=== PATIENT | female | born 1940 | race Caucasian/White ===

== ENCOUNTER 2020-11-13 21:27 | Emergency (ER) | payer MEDICARE, OTHER, SELFPAY ==
[2020-11-13] VITALS (7 sets, daily range): BP systolic 114–124; BP diastolic 56–74; PULSE 66–83; RESP 18–20; TEMP 36.4; O2SAT 96–98
--- NOTE | 2020-11-13 21:30 | RT.EKG_ITS ---
APPROVED REPORT Exam: Resting ECG Patient Location: E HR:67 bpm ECG Measurements Heart Rate 67 AXIS W[place] 147 P 49 QRSd 76 QRS -10 QT 409 T 69 QTc 432 Conclusion Sinus rhythm...normal P axis, V-rate 60- 99 Low voltage, precordial leads...precordial leads <1.0mV
--- NOTE | 2020-11-13 21:45 | DI.RAD_ITS ---
EXAM: XR CHEST 2V PA LATERAL CLINICAL HISTORY: chest pain TECHNIQUE: 2D digital imaging was performed. COMPARISON: No exams were available for comparison FINDINGS: The heart is not enlarged. Coronary artery stents are noted. The lungs are clear and well expanded. No pleural effusion seen. Mediastinal contours appear intact. IMPRESSION: Normal chest. RADIATION DOSE DELIVERED: Total DLP
[2020-11-13 22:10] LABS: Abs Immature Grans 0.03 10^3/uL (0.0-0.06); Absolute Basophil Count 0.05 10^3/uL (0.0-0.2); Absolute Eosinophil Count 0.23 10^3/uL (0.0-0.7); Absolute Lymphocyte Count 2.71 10^3/uL (1.2-3.4); Absolute Monocyte Count 0.66 10^3/uL (0.1-0.8); Absolute Neutrophil Count 5.06 10^3/uL (1.2-6.7); Basophils % 0.6; Eosinophils % 2.6; HCT 38.8 % (36.0-46.0); HGB 12.4 g/dL (11.2-15.7); Immature Grans % 0.3; MCV 87.6 fL (80-95); MPV 8.9 fL (8.0-11.0); Monocytes % 7.6; Neutrophils % 57.9; Nucleated RBC 0 %; Platelet Count 318 10^3/uL (130-400); RBC 4.43 10^6/uL (3.93-5.22); RDW 14.4 % (11.7-14.6); RDW-SD 46.4 fL; WBC 8.74 10^3/uL (4.4-10.8)
[2020-11-13 22:27] LABS: PTT Activated 22.4 sec (21.0-27.5); Prothrombin Time 9.9 sec (9.3-11.0)
[2020-11-13] MEDS: Aspirin 81 MG CHEW 243 MG CH (22:30)
[2020-11-13 22:33] LABS: ALT 20 U/L (14-59); AST 16 U/L (15-37); Albumin 3.7 g/dL (3.4-5.0); Alkaline Phosphatase 112 U/L (46-116); Anion Gap 15.4 mmol/L (3-11); BUN 19 mg/dL (7-18); CO2 22.6 mmol/L (21.0-32.0); CREATININE 1.1 mg/dL (0.55-1.02); Calcium 9.5 mg/dL (8.5-10.1); Chloride 104 mmol/L (98-107); Estimated GFR 48.04 (mL/min/1.73m2); Glucose 171 mg/dL (74-106); Magnesium 1.6 mg/dL (1.8-2.4); NT-proBNP 79 pg/mL (<300); Potassium 3.1 mmol/L (3.5-5.1); Sodium 142 mmol/L (136-145); Total Protein 7.6 g/dL (6.4-8.2)
[2020-11-13 22:36] LABS: Troponin I < 0.05 ng/mL (<0.06)
[2020-11-13 22:46] LABS: D-Dimer 2036 ng/mlFEU (<500)
--- NOTE | 2020-11-13 22:49 | DI.VRAD_ITS ---
PROCEDURE INFORMATION: Exam: XR Chest Exam date and time: 11/13/2020 10:21 PM Age: 80 years old Clinical indication: Chest pain TECHNIQUE: Imaging protocol: XR of the chest Views: 2 views. COMPARISON: No relevant prior studies available. FINDINGS: Lungs: Unremarkable. No consolidation. Pleural spaces: Unremarkable. No pleural effusion. No pneumothorax. Heart/Mediastinum: Coronary artery stents present. Bones/joints: Unremarkable. IMPRESSION: No acute finding. Dictated and Authenticated by: Avani Munoz MD. Ordering:APOLINAR Singh MD
--- NOTE | 2020-11-13 22:49 | DI.CT_ITS ---
EXAM: CT CHEST PE ABD PELVIS W TECHNIQUE: CT angiography of the chest, and abdomen was performed with bolus infusion of 100 cc of O mnipaque 350. Axial CT angiography was performed with multi-slice acquisition and multi-planar and/or 3D reconstruc tions. COMPARISON: No exams were available for comparison FINDINGS: The lungs are predominantly clear with mild changes of scarring and a couple of tiny calcified pulmo nary nodules of the left upper lobe.. No pleural effusion. No evidence of pulmonary embolic disease. No thoracic aortic dissection or aneurysm. Borderline ectasia the ascending aorta at 40 millimeters . Major branches of the thoracic aorta appear normal. No pleural effusion. No mediastinal or hilar adenopathy. Tracheobronchial tree appears intact. No focal hepatic or renal abnormality seen. Gallbladder and bile ducts are CT normal. Pancreas is unr emarkable. Spleen shows unremarkable early arterial phase pattern of enhancement. No abdominal aortic aneurysm or dissection. Major branches of the abdominal aorta show mild calcific atheromatous changes without evidence of a hemodynamically significant stenosis.. No abdominal or pe lvic adenopathy. Normal appendix. No significant abdominal wall hernia. No focal bowel pathology. IMPRESSION: No evidence of acute vascular abnormality of the chest, or abdomen. No other significant acute findi ngs. RADIATION DOSE DELIVERED: 713.32mGy.cm Total DLP 713.32mGy.cm Total DLP DATA REPOSITORY: All CT scans at this facility are submitted to the National Radiology Data Registry (NRDR) Dose Index Registry (DIR) with the [employer] ([employer]). RADIATION OPTIMIZATION: All CT scans at this facility use at least one of these dose optimization te chniques: automated exposure control; mA and/or kV adjustment per patient size (includes targeted exa ms where dose is matched to clinical indication); or iterative reconstruction.
[2020-11-13] MEDS: MAGNESIUM SULFATE 1 GM/100 ML BAG IVPB (22:51)
[2020-11-13] MEDS: Potassium Chloride 20 MEQ TABCR 40 MEQ PO (22:51)
--- NOTE | 2020-11-13 23:14 | ED.GENADUL_ITS ---
Discharge Plan Disposition Patient Disposition: HOME Condition: Stable Discharge Details Clinical Impression: Chest pain Primary Care Provider: Shelton Kim ED Provider: Jose Daniel Plunkett [place] Meds and New Rx's Prescriptions: Continued atorvastatin 80 mg Tablet 80 mg RF: 0 donepezil 10 mg Tablet 10 mg RF: 0 isosorbide mononitrate 30 mg Tablet Extended Release 24 Hr 30 mg PO RF: 0 clopidogrel 75 mg Tablet 75 mg RF: 0 aspirin 81 mg Tablet,Delayed Release (Dr/Ec) 81 mg RF: 0 cyanocobalamin (vitamin B-12) [Vitamin B-12] 500 mcg Tablet 500 mcg RF: 0 nitroglycerin [Nitrostat] 0.4 mg Tablet, Sublingual 0.4 mg sublingual RF: 0 sertraline 25 mg Tablet 25 mg RF: 0 estradiol [Estrace] 0.01 % (0.1 mg/gram) Cream 0.01 VAGINAL RF: 0 memantine 10 mg Tablet 10 mg RF: 0 metoprolol tartrate 25 mg Tablet 12.5 mg RF: 0 cinnamon bark [Cinnamon] 500 mg Capsule 500 mg PO RF: 0 cholecalciferol (vitamin D3) [Vitamin D3] 125 mcg (5,000 unit) Tablet 125 mcg RF: 0 melatonin 5 mg Capsule 5 mg RF: 0 Osteo Bi-Flex Triple Strength 750 mg-644 mg- 30 mg-1 mg Tablet PO RF: 0 Discharge Instructions Instructions: Chest Pain (ED) Additional Instructions: Evaluation tonight shows no evidence of blood clot or dissection on CT scan. EKG and cardiac enzymes x2 were fine. Some electrolyte abnormalities which were addressed. You should follow-up with primary care and cardiology. Return to ED for new or worsening pain, fever, shortness of breath, or other concerns. Referrals: Shelton Kim [Primary Care Provider] - Discharge Data Discharge Date/Time-TO BE ENTERED AT DEPARTURE: 11/14/20 01:36 Medical Decision Making <ADDI Joe - Last Filed: 11/14/20 11:57> 80-year-old female presents to the ER with her daughter, history of dementia, OR with multiple stents, hyperlipidemia, hypertension, CVA-TIA, aortic aneurysm, presents for increasing frequency of chest pain, vague left arm pain, and shortness of breath. Patient is followed by cardiology at [facility]. Most recent symptoms were around 6:30 PM this evening after walking in a store, martha gustafsonomatic now. She took a single aspirin, will provide her additional 3 aspirin. Will initiate cardiac work-up including a D-dimer. Differential is wide and includes not excluded to ACS, unstable angina, PE, aneurysm, chest wall pain, costochondritis, pneumonia, CHF, pleural effusion etc. Upon reevaluation patient remains asymptomatic. Laboratory values reveal a white blood cell count of 8.74 hemoglobin 12.4 hematocrit 38.8 platelet count 318. INR 1.0. D-dimer 2036, potassium 3.1, BUN 19 creatinine 1.1 GFR 48.04 glucose 171 magnesium 1.6 troponin less than 0.05, BNP 79. Will replenish with 1 g IV magnesium and 40 p.o. potassium Given the elevated D-dimer, I contacted radiology to discuss the best study. Will obtain chest CTA with continuation down through the abdomen given my con cern for potential PE and history of aneurysm. Imaging Data Radiologic Study: Attestation: I personally reviewed and interpreted this imaging study as follows: Imaging: X-Ray Radiologist's impression: Chest x-ray read by radiology as no acute findings Lab Data Lab results reviewed: Yes I reviewed the patient's lab results. Lab results narrative: Laboratory Tests Range/Units 11/13/20 11/13/20 11/13/20 22:00 22:00 22:00 WBC (4.4-10.8) 10^3/uL 8.74 RBC (3.93-5.22) 10^6/uL 4.43 Hgb (11.2-15.7) g/dL 12.4 Hct (36.0-46.0) % 38.8 MCV (80-95) fL 87.6 MCH (27.0-33.0) pg 28.0 MCHC (32.0-36.0) % 32.0 RDW (11.7-14.6) % 14.4 Plt Count (130-400) 10^3/uL 318 MPV (8.0-11.0) fL 8.9 Immature Gran % 0.3 Neutrophils % 57.9 Lymphocytes % 31.0 Monocytes % 7.6 Eosinophils % 2.6 Basophils % 0.6 Nucleated RBC % % 0 Absolute Neutrophils (1.2-6.7) 10^3/uL 5.06 Absolute Lymphocytes (1.2-3.4) 10^3/uL 2.71 Absolute Monocytes (0.1-0.8) 10^3/uL 0.66 Absolute Eosinophils (0.0-0.7) 10^3/uL 0.23 Absolute Basophils (0.0-0.2) 10^3/uL 0.05 PT (9.3-11.0) sec 9.9 INR (0.9-1.1) 1.0 APTT (21.0-27.5) sec 22.4 D-Dimer (<500) ng/mlFEU 2036 H Sodium (136-145) mmol/L 142 Potassium (3.5-5.1) mmol/L 3.1 L Chloride (98-107) mmol/L 104 Carbon Dioxide (21.0-32.0) mmol/L 22.6 Anion Gap (3-11) mmol/L 15.4 H BUN (7-18) mg/dL 19 H Creatinine (0.55-1.02) mg/dL 1.1 H Estimated GFR/1.73 m2 (mL/min/1.73m2) 48.04 Glucose (74-106) mg/dL 171 H Calcium (8.5-10.1) mg/dL 9.5 Magnesium (1.8-2.4) mg/dL 1.6 L Total Bilirubin (0.2-1.0) mg/dL 1.0 AST (15-37) U/L 16 ALT (14-59) U/L 20 Alkaline Phosphatase (46-116) U/L 112 Troponin I (<0.06) ng/mL < 0.05 NT-Pro-B Natriuret Pep (<300) pg/mL 79 Total Protein (6.4-8.2) g/dL 7.6 Albumin (3.4-5.0) g/dL 3.7 ECG Data Attestation: I personally reviewed and interpreted this ECG (s) as follows: Interpretation: Please see official report by Dr. Villela. Sinus rhythm, ventricular rate 67. No STEMI. <Jose Daniel Plunkett MD - Last Filed: 11/14/20 01:27> Patient signed out to me pending results of CT scan as well as repeat EKG and troponin. Patient had been brought in by her daughter for evaluation of chest pain that she thought was different than patient's typical complaint of chest pain which is quite often. 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 Repeat EKG and troponin remain fine. Daughter comfortable with taking mother home and following up with primary care and/or cardiology as outpatient. Return to ED for any new or worsening pain, fever, shortness of breath, other concerns. Lab Data Lab results reviewed: Yes I reviewed the patient's lab results. ECG Data Attestation: I personally reviewed and interpreted this ECG (s) as follows: Prior ECG tracings: available for review Interpretation: see EKG HPI <ADDI Joe - Last Filed: 11/14/20 11:57> General Mode of arrival: ambulatory . Date/Time Provider Initiated Documentation: 11/13/20 21:49 . Limitations to Documentation: altered mental status (Baseline dementia per daughter who was present) . Information obtained by: patient and family . HPI Narrative: This is a 80-year-old female who presents to the ER with her daughter for evaluation. Sarah olguin has a history of dementia and is a poor and vague historian. Currently she has no symptoms or complaints whatsoever. She has a past medical history of OR, multiple stents, most recent 2018. She has a history of hypertension, CVA-TIA with no primary deficit, hyperlipidemia. She used to take nitro however had difficulty remembering to take it and knowing when and how to take it so instead she is now on isosorbide. Daughter reports that it is very common for her to have intermittent chest pain at least on a weekly basis. The overall history is difficult to obtain but it sounds as though she has had increasing intermittent chest pain and left arm pain for the past week or 2. Today they were walking through [employer], patient felt as though someone was tightening her bra, described as chest squeezing or pressure. This occurred around 630 p.m. and resolved on its own. Unclear exactly how long it lasted. Patient is followed by cardiology at [facility]. Daughter unsure of her last echo or stress test. She states the last catheterization was performed in 2019, vessels were clear and no intervention required. Daughter also reports that she has an aneurysm, stable, and they are just monitoring it. Unclear whether this aneurysm is in the chest or abdomen. They attempted to be seen at [facility] but because the daughter was not allowed in they opted to leave [facility] and come here. Denies recent illness or trauma. Denies any recent travel or sick contacts. Related Data Home Medications Medication Instructions Recorded Confirmed Osteo Bi-Flex Triple Strength tab PO 11/13/20 aspirin 81 mg 11/13/20 atorvastatin 80 mg 11/13/20 cholecalciferol (vitamin D3) 125 mcg 11/13/20 [Vitamin D3] cinnamon bark [Cinnamon] 500 mg PO 11/13/20 clopidogrel 75 mg 11/13/20 cyanocobalamin (vitamin B-12) 500 mcg 11/13/20 [Vitamin B-12] donepezil 10 mg 11/13/20 estradiol [Estrace] 0.01 VAGINAL 11/13/20 isosorbide mononitrate 30 mg PO 11/13/20 melatonin 5 mg 11/13/20 memantine 10 mg 11/13/20 metoprolol tartrate 12.5 mg 11/13/20 nitroglycerin [Nitrostat] 0.4 mg SUBLINGUAL 11/13/20 sertraline 25 mg 11/13/20 Allergies Allergy/AdvReac Type Severity Reaction Status Date / Time Penicillins Allergy Unverified 11/13/20 21:44 sulfamethoxazole Allergy Unverified 11/13/20 21:44 [From Bactrim] trimethoprim [From Bactrim] Allergy Unverified 11/13/20 21:44 General Stated Complaint: Chest Pain CECILLE: 2 Review of Systems <ADDI Joe - Last Filed: 11/14/20 11:57> Constitutional Constitutional: Reports fatigue, Denies fever(s) and Denies headache(s) Eyes Eyes: Denies change in vision ENT Ears, Nose, Mouth, and Throat: Denies headache(s) and Denies neck pain Cardiovascular Cardiovascular: Reports chest pain and Reports dyspnea Respiratory Respiratory: Denies cough and Reports dyspnea Gastrointestinal Gastrointestinal: Denies abdominal pain, Denies nausea and Denies vomiting Genitourinary Genitourinary: Denies dysuria Musculoskeletal Musculoskeletal: Denies back pain, Denies neck pain, Denies numbness and Denies tingling Integumentary/Breasts Skin/Breast: Denies rash Neurologic Neurologic: Denies headache(s), Denies numbness and Denies tingling Endocrine Endocrine: Reports fatigue Hematologic/Lymphatic Hematologic/Lymphatic: Reports easy bleeding and Reports easy bruising PFSH <ADDI Joe - Last Filed: 11/14/20 11:57> Social History Smoking/Tobacco Use Status: Never Smoking risk assessment performed?: Yes Alcohol Intake: never Drug use: Never Do you feel safe at home: Yes Do you feel safe in your relationship?: Yes Exam <ADDI Joe - Last Filed: 11/14/20 11:57> Const General: cooperative, healthy appearing, comfortable and no acute distress Orientation: alert, awake, oriented to person, oriented to place and oriented to time (Unsure of exact date) [facility] Head: normal to inspection, normocephalic and atraumatic Face and sinus: normal facial exam Mouth: moist mucous membranes Eyes General: appearance normal, both eyes and all related structures Alignment and Position: alignment normal Periorbital: periorbital findings normal Eyelids: eyelids normal Conjunctivae: conjunctivae normal Sclera: sclerae normal Cornea: corneas normal Pupils: PERRL EOM: EOM intact bilaterally Direct ophthalmoscopy: normal light reflex Neck Neck: normal visual inspection, full ROM, trachea midline, supple and nontender Resp Effort & Inspection: normal respiratory effort and able to speak in complete sentences Auscultation: clear to auscultation bilaterally Cardio Rate: regular rate Rhythm: regular rhythm GI Palpation: soft, not firm, no guarding, no pulsatile masses and nontender Auscultation: normal bowel sounds Back/Spine/Pelvis Back: No back tenderness Skin General skin exam: no rashes or lesions noted Neuro General: patient alert, patient awake, moves all extremities and no focal motor deficits Cognition: normal cognition Speech: speech normal Gait: normal gait Motor: muscle tone normal throughout Sensory Exam: no sensory deficits noted Extrem General: normal to inspection, full ROM, capillary refill normal, no pedal edema and no calf tenderness Psych Appearance: grossly normal Mental Status: mental status grossly normal Course <ADDI Joe - Last Filed: 11/14/20 11:57> Vital Signs Vital signs: Vital Signs Temperature 36.4 C L 11/13/20 21:38 Pulse 83 11/13/20 21:38 Respiratory Rate 18 11/13/20 21:38 Blood Pressure 116/73 11/13/20 21:38 Pulse Oximetry 97 11/13/20 21:38 Temperature 36.4 C L 11/13/20 21:38 Temperature Source Temporal Artery Scan 11/13/20 21:38 Pulse 66 11/13/20 22:01 Pulse 67 11/13/20 22:01 Respiratory Rate 20 11/13/20 22:01 Respiratory Effort Non-Labored 11/13/20 22:00 Respiratory Depth Normal 11/13/20 22:00 Respiratory Pattern Normal 11/13/20 22:00 Blood Pressure 114/56 L 11/13/20 22:01 Blood Pressure Mean 70 11/13/20 22:01 Pulse Oximetry 98 11/13/20 22:01 Oxygen Delivery Method Room Air 11/13/20 21:38 Oxygen Flow Rate 0 11/13/20 21:38 Pain Level 2 11/13/20 22:00 Lab/Test Results Lab/Test Results: Laboratory Tests Range/Units 11/13/20 11/13/20 11/13/20 22:00 22:00 22:00 WBC (4.4-10.8) 10^3/uL 8.74 RBC (3.93-5.22) 10^6/uL 4.43 Hgb (11.2-15.7) g/dL 12.4 Hct (36.0-46.0) % 38.8 MCV (80-95) fL 87.6 MCH (27.0-33.0) pg 28.0 MCHC (32.0-36.0) % 32.0 RDW (11.7-14.6) % 14.4 Plt Count (130-400) 10^3/uL 318 MPV (8.0-11.0) fL 8.9 Immature Gran % 0.3 Neutrophils % 57.9 Lymphocytes % 31.0 Monocytes % 7.6 Eosinophils % 2.6 Basophils % 0.6 Nucleated RBC % % 0 Absolute Neutrophils (1.2-6.7) 10^3/uL 5.06 Absolute Lymphocytes (1.2-3.4) 10^3/uL 2.71 Absolute Monocytes (0.1-0.8) 10^3/uL 0.66 Absolute Eosinophils (0.0-0.7) 10^3/uL 0.23 Absolute Basophils (0.0-0.2) 10^3/uL 0.05 PT (9.3-11.0) sec 9.9 INR (0.9-1.1) 1.0 APTT (21.0-27.5) sec 22.4 D-Dimer (<500) ng/mlFEU 2036 H Sodium (136-145) mmol/L 142 Potassium (3.5-5.1) mmol/L 3.1 L Chloride (98-107) mmol/L 104 Carbon Dioxide (21.0-32.0) mmol/L 22.6 Anion Gap (3-11) mmol/L 15.4 H BUN (7-18) mg/dL 19 H Creatinine (0.55-1.02) mg/dL 1.1 H Estimated GFR/1.73 m2 (mL/min/1.73m2) 48.04 Glucose (74-106) mg/dL 171 H Calcium (8.5-10.1) mg/dL 9.5 Magnesium (1.8-2.4) mg/dL 1.6 L Total Bilirubin (0.2-1.0) mg/dL 1.0 AST (15-37) U/L 16 ALT (14-59) U/L 20 Alkaline Phosphatase (46-116) U/L 112 Troponin I (<0.06) ng/mL < 0.05 NT-Pro-B Natriuret Pep (<300) pg/mL 79 Total Protein (6.4-8.2) g/dL 7.6 Albumin (3.4-5.0) g/dL 3.7 Sign Out <ADDI Joe - Last Filed: 11/14/20 11:57> Sign Out Data: Sign Out Comment: History of OR with multiple stents, takes Plavix daily. History of intermittent chest pain at baseline, worse over the past couple of weeks. Today while walking in a store felt a squeezing, like my bra was being tightened. Given additional 3 baby aspirin. Cardiac work-up including D- dimer. Replenish magnesium and potassium. Elevated D-dimer. Obtaining chest CTA to rule out PE and will extend the study through the abdomen for further evaluation of her aneurysm. At time of signout to Dr. Plunkett, patient was in diagnostic imaging obtaining CTA, also awaiting repeat troponin and EKG at the 3-hour time line Last updated by Francisco Urbina PA at 11/13/20 23:47
[2020-11-13] MEDS: Normal Saline - Diluent 50 ML VIAL IV (23:59)
[2020-11-13] MEDS: Omnipaque 350 MG/ML 100 ML BTL IJ (23:59)
[2020-11-14] MEDS: Normal Saline Flush 10 ML SYR IVP
--- NOTE | 2020-11-14 | RT.EKG_ITS ---
APPROVED REPORT Exam: Resting ECG Patient Location: E HR:52 bpm ECG Measurements Heart Rate 52 AXIS TN 165 P 47 QRSd 73 QRS 9 QT 450 T 58 QTc 421 Conclusion Sinus bradycardia...rate< 60 Low voltage, precordial leads...precordial leads <1.0mV Normal [place] There are no significant changes compared to prior EKG performed on 11/13/2020 at 21:54.
--- NOTE | 2020-11-14 00:34 | DI.VRAD_ITS ---
PROCEDURE INFORMATION: Exam: CT Angiography Chest With Contrast Exam date and time: 11/13/2020 11:24 PM Age: 80 years old Clinical indication: Chest pain; Patient HX: Pain/ elevate d-dimer /history of aneursym TECHNIQUE: Imaging protocol: Computed tomographic angiography of the chest with contrast. 3D rendering (Not supervised by radiologist): MIP and/or 3D reconstructed images were created by the technologist. Contrast material: OMNIPAQUE 350; Contrast volume: 100 ml; Contrast route: INTRAVENOUS (IV); COMPARISON: CR XR CHEST 2V PA LATERAL 11/13/2020 10:18 PM FINDINGS: Pulmonary arteries: No pulmonary embolism identified. Aorta: Ascending thoracic aorta dilated to 4.2 cm. Normal caliber descending thoracic aorta. No evidence of dissection. Thyroid: Thyroid gland partially excluded from view and partially obscured by artifact but grossly unremarkable, as seen, through its visualized portion. Lungs: Calcified left upper lobe pulmonary granuloma. Scattered linear and streaky opacities, probably atelectasis and/or scarring. No pulmonary consolidation. Pleural spaces: No pleural effusion or pneumothorax. Heart: Normal-sized heart. Extensive coronary artery calcification. Lymph nodes: No pathologically enlarged mediastinal or hilar lymph nodes. Bones/joints: No acute fracture seen among the bones of the chest. Soft tissues: No gross soft tissue mass or fluid collection seen in the chest wall. IMPRESSION: 1. No active disease is seen in the chest. 2. Dilatation of the ascending thoracic aorta measuring 4.2 cm. PROCEDURE INFORMATION: Exam: CT Angiography Abdomen With Contrast Exam date and time: 11/13/2020 11:24 PM Age: 80 years old Clinical indication: Chest pain; Patient HX: Pain/ elevate d-dimer /history of aneursym TECHNIQUE: Imaging protocol: Computed tomographic angiography images of the abdomen with intravenous contrast material. 3D rendering (Not supervised by radiologist): MIP and/or 3D reconstructed images were created by the technologist. Contrast material: OMNIPAQUE 350; Contrast volume: 100 ml; Contrast route: INTRAVENOUS (IV); COMPARISON: CR XR CHEST 2V PA LATERAL 11/13/2020 10:18 PM FINDINGS: Mediastinum: 3.0 cm x 4.0 cm hiatal hernia. Aorta: Normal caliber abdominal aorta. No aneurysmal dilatation or dissection. Celiac trunk and mesenteric arteries: Celiac artery, superior mesenteric artery, and inferior mesenteric artery widely patent, as seen. Renal arteries: Mild atherosclerotic calcification at the renal artery origins bilaterally, more prominent on the left. At least mild ostial narrowing suggested on the left. Renal arteries otherwise grossly patent. Liver: Normal appearing liver. Gallbladder and bile ducts: Normal appearing gallbladder. No calcified gallstones. No biliary dilatation. Pancreas: Normal appearing pancreas. Spleen: Normal appearing spleen. Adrenals: Normal appearing adrenal glands. Kidneys and ureters: Normal appearing kidneys. No hydronephrosis. Stomach and bowel: Stomach partially distended with fluid and gas. Proximal duodenal diverticulum incidentally noted, image 298 of series 18. No small bowel dilatation in the upper abdomen. Visualized colon largely well evacuated of fecal material. No evidence of diverticulitis or colitis through the visualized portion of the colon. Pelvis not imaged. Lymph nodes: No pathologically enlarged mesenteric or retroperitoneal lymph nodes. Intraperitoneal space: No gross ascites or free air in the upper abdomen. Bones/joints: No acute fracture seen in the abdomen. Prominent discogenic degeneration partially visualized at L4-L5. Soft tissues: Diastasis recti. IMPRESSION: 1. No abdominal aortic aneurysm or dissection. 2. 3.0 cm x 4.0 cm hiatal hernia. Dictated and Authenticated by: Cristofer Segura MD. Ordering:APOLINAR Singh MD
[2020-11-14 01:13] LABS: Troponin I < 0.05 ng/mL (<0.06)
== END 2020-11-14 01:36 | disposition home or self-care (01) ==
PROVIDERS: Physician Assistant; Emergency Provider Emergency Medicine; PCP Psychiatry & Neurology Psychiatry
DX: R07.89 Other chest pain (principal); E83.42 Hypomagnesemia; E87.6 Hypokalemia; R06.02 Shortness of breath
CPT/HCPCS: 71275; 74177; 80053; 93005; 96365; 99285; 71046; 83735; 83880; 84484; 85025; 85379; 85610; 85730; 93010; 99283; J3475; J3490